=== PATIENT | male | born 1990 | race Caucasian/White ===

== ENCOUNTER 2024-12-14 10:53 | Emergency (ER) | payer OTHER, SELFPAY ==
--- NOTE | ~2024-12-14 | XR_ITS ---
EXAMINATION: XR FOREARM, RIGHT XR HAND, RIGHT CLINICAL INFORMATION: trauma COMPARISON: None available. TECHNIQUE: AP and lateral views of the right forearm were obtained. 3 views right hand and wrist were obtained. FINDINGS: Comminuted, minimally displaced, minimally dorsally angulated distal radial metaphyseal fracture with intra-articular component. No articular step-off seen. Minimal impaction. Nondisplaced fracture distal ulnar metaphysis. No additional fractures. Carpal bones intact. Elbow joint is intact. XR/XR forearm RT 2V IMPRESSION: 1. Comminuted, intra-articular, minimally displaced, minimally dorsally angulated distal radial metaphyseal fracture. 2. Nondisplaced transverse ulnar metaphyseal fracture 3. Soft tissue swelling. Electronically signed by: Bertram Cox MD 12/14/2024 01:13 PM JANES KEEN
--- NOTE | ~2024-12-14 | XR_ITS ---
EXAMINATION: XR FOREARM, RIGHT XR HAND, RIGHT CLINICAL INFORMATION: trauma COMPARISON: None available. TECHNIQUE: AP and lateral views of the right forearm were obtained. 3 views right hand and wrist were obtained. FINDINGS: Comminuted, minimally displaced, minimally dorsally angulated distal radial metaphyseal fracture with intra-articular component. No articular step-off seen. Minimal impaction. Nondisplaced fracture distal ulnar metaphysis. No additional fractures. Carpal bones intact. Elbow joint is intact. XR/XR hand RT min 3V IMPRESSION: 1. Comminuted, intra-articular, minimally displaced, minimally dorsally angulated distal radial metaphyseal fracture. 2. Nondisplaced transverse ulnar metaphyseal fracture 3. Soft tissue swelling. Electronically signed by: Bertram Cox MD 12/14/2024 01:13 PM JANES KEEN
[2024-12-14 11:22] VITALS: BP 154/85; PULSE 81; RESP 16; TEMP 37.2; O2SAT 99; BMI 22.4
--- NOTE | 2024-12-14 11:25 | ED_ITS ---
HPI - General Adult General Chief complaint: Extremity Injury, Upper Stated complaint: Wrist injury Time Seen by Provider: 12/14/24 15:45 Source: patient Mode of arrival: ambulatory Limitations: no limitations History of Present Illness ED Provider: ANA Dvais HPI narrative: This is a 34-year-old male presenting with mechanical fall last night, he reports he fell onto an outstretched hand, since then has been having right wrist pain and deformity as well as swelling. He reports pain is worse with range of motion better at rest. He is not on blood thinners. No head strike or loss of consciousness. No other reported injuries from fall. He denies preceding symptoms to fall. Patient denies chest pain, shortness of breath, nausea, vomiting, abdominal pain, fevers, chills, numbness, tingling, headache, vision changes, dizziness and weakness. Related Data Previous Rx's ?Medication ?Instructions ?Recorded ketorolac 10 mg tablet 10 mg PO TID PRN pain 5 days #15 12/14/24 tabs Allergies Allergy/AdvReac Type Severity Reaction Status Date / Time No Known Allergies Allergy Unverified 12/14/24 11:23 [No Known Allergies*] Review of Systems Review of Systems: Yes all other systems are reviewed and are negative PMFSH Past Medical History Attestation statement: The following information was validated with the patient. Source: old records reviewed and nursing notes reviewed Physical Exam ED Vital Signs: Vital Signs - 24 hr 12/14/24 11:22 Temperature 98.9 F Pulse Rate 81 Respiratory Rate 16 Blood Pressure 154/85 H Pulse Oximetry 99 Oxygen Delivery Method Room Air BMI result Body Mass Index 22.4 vss Appearance: Alert.? Oriented X3.? No acute distress.? Head: Normocephalic, atraumatic, no step-offs or deformities Eyes: Pupils equal, round and reactive to light.? ENT: Pharynx normal.? Neck: Normal inspection.? Neck supple.? CVS: Normal heart rate and rhythm.? Pulses normal.? Respiratory: No respiratory distress.? Breath sounds normal.? Abdomen: Soft and nontender.? Skin: Skin warm and dry.? Normal skin color.? Normal skin turgor.? Extremities: No lower extremity edema.? No calf ttp. 5/5 strength to bilateral upper and lower extremities. 2+ radial pulses equal bilateral. No wrist drop. Normal distal sensation. Normal capillary refill less than 2 seconds to bilateral upper extremities. Right wrist with painful flexion and extension however normal strength. Normal strength to bilateral upper extremities. Back: No midline tenderness, no C-spine tenderness, full range of motion, no CVA tenderness bilaterally Neuro: Oriented X 3.? No motor deficit.? No sensory deficit. CN 2-12 intact Course Course Course Narrative: This is a rapid medical exam performed by Letitia Rowell PA-C. Patient is a 34-year-old male who presents with right hand and wrist pain. Patient states he fell yesterday, he is now unable to flex or extend the right wrist. Swelling and deformity noted over the forearm, we will obtain imaging of the forearm and the hand. The patient is stable and can return to the waiting room pending his full medical assessment. Reevaluation(s) Reevaluation #1: Based off imaging I felt like it was appropriate to discuss this case with Orthopedics discuss this case with ANA Coronado who states the the fracture looks fairly well reduced. In that patient would likely require surgery. Will likely place patient in a volar splint and have him follow up with Orthopedics as he will likely require surgery. Will give him something for pain. Time: 16:02 Reevaluation #2: I did discuss plan with patient, offered reduction however he was not thrilled on having a reduction done. I offered him a splint, he would prefer something that he can take off. I explained to him it should not be taken off and it should be kept on as much as possible. Will have him follow up outpatient with the orthopedic team. No signs of neurovascular compromise. Time: 16:06 Medical Decision Making Medical Decision Making MDM Narrative: 34-year-old male presents with right FOOSH injury that occurred last night Physical exam No lower extremity edema.? No calf ttp. 5/5 strength to bilateral upper and lower extremities. 2+ radial pulses equal bilateral. No wrist drop. Normal distal sensation. Normal capillary refill less than 2 seconds to bilateral upper extremities. Right wrist with painful flexion and extension however normal strength. Normal strength to bilateral upper extremities. History and physical exam concerning for fracture and possible dislocation. No signs of neurovascular compromise or acute threat to limb. No signs of trauma to head, neck, chest, abdomen or pelvis. Plan labs, imaging ordered from triage however patient refusing labs. Differential Diagnosis Differential Diagnoses: The differential diagnosis associated with the presentation includes (History and physical exam concerning for fracture and possible dislocation. No signs of neurovascular compromise or acute threat to limb. No signs of trauma to head, neck, chest, abdomen or pelvis.) Admission/Observation Consideration of admission/observation: Escalation of care including admission/observation considered (unlikely ) Consult Healthcare Provider Management of the patient was discussed with: Plugger (Orthopedics) Independent Interpretation I performed an independent interpretation of an: Plain X-Ray Radiology Impression Discussion of test interpretation with radiology: I have reviewed the radiologist's reading. Critical Care Time Critical Care Time Critical Care Time: Yes Total Critical Care Time: 35 Attestation: I attest to this time spent taking care of the patient, obtaining history, physical, reviewing labs, imaging, speaking to my attending, speaking to specialist. Discharge Plan Discharge Clinical Impression: Fracture of right wrist Patient Disposition: Home, Self-Care Instructions: Wrist Fracture in Adults (ED) Additional Instructions: Take your medications as prescribed. If you were prescribed antibiotics today, it is important that you take your medication to their entirety, do not skip any doses, do not finish them early. Follow-up with your primary care provider this week. Return to the emergency department with new or worsening symptoms. Such as fevers, chills, chest pain, shortness of breath, nausea, vomiting, dizziness, headache, vision changes, lethargy In case of emergency call 911 Toradol has been sent to your pharmacy, you tolerated this well in the department. Please take this as prescribed do not take this with ibuprofen, or other NSAIDs, do not mix this with alcohol. Side effects of this medication including increased risk for bleeding and possible kidney injury. XR/XR hand RT min 3V IMPRESSION: 1. Comminuted, intra-articular, minimally displaced, minimally dorsally angulated distal radial metaphyseal fracture. 2. Nondisplaced transverse ulnar metaphyseal fracture 3. Soft tissue swelling. Prescriptions: New ketorolac 10 mg tablet 10 mg PO TID PRN (Reason: pain) 5 Days Qty: 15 0RF Rx Instructions: Tolerated IM or IV in department Referrals: Daphney Langford MD [Primary Care Provider] - 2 days [facility] [Provider Group] - 2 days Stand Alone Forms: Work/School Release Print Language: Yoruba
[2024-12-14 15:50] VITALS: BP 130/75; PULSE 94; RESP 14; TEMP 37.1; O2SAT 99
--- NOTE | 2024-12-14 15:52 | MHC.EDTECH ---
PT CONTINUES TO REFUSE BLOOD WORK AT THIS TIME
--- NOTE | 2024-12-14 16:06 | PC.NURSE ---
Patient refused labs and reduction states will follow up with Orthopedics. Provided with sling
[2024-12-14] MEDS: NaPROXEN 500 MG TABLET PO (16:57)
[2024-12-14 17:00] VITALS: BP 130/75; PULSE 94; RESP 14; TEMP 37.1; O2SAT 99
== END 2024-12-14 17:01 | disposition home or self-care (01) ==
PROVIDERS: Emergency Provider Emergency Medicine; PCP Internal Medicine
DX: S62.101A Fracture of unspecified carpal bone, right wrist, initial encounter for closed fracture (principal); M79.601 Pain in right arm; W01.0XXA Fall on same level from slipping, tripping and stumbling without subsequent striking against object, initial encounter; Y93.9 Activity, unspecified; Y92.9 Unspecified place or not applicable; Y99.8 Other external cause status
CPT/HCPCS: 29125; 73090; 73130; 99283; 99284

== ENCOUNTER → 2024-12-14 11:24 | Outpatient (BNV) | payer OTHER, SELFPAY | PROVIDERS: PCP Internal Medicine; Visit Provider Radiology Diagnostic Radiology | DX: S52.571A Other intraarticular fracture of lower end of right radius, initial encounter for closed fracture (principal); S52.225A Nondisplaced transverse fracture of shaft of left ulna, initial encounter for closed fracture | CPT/HCPCS: 73090; 73110; 73130 ==